=== PATIENT | female | born 1955 | race Caucasian/White ===

== ENCOUNTER 2016-12-01 13:30 | Day surgery (SDC) | payer OTHER, SELFPAY ==
--- NOTE | ~2016-12-01 | EGD ---
EGD REPORT [facility] [address] [place] [address] NAME: KARISHMA KAUFMAN : 59 STATUS : REG [facility] PAT#: [id number] AGE: 61 ADM/REG DATE : 12/01/16 MR#: [id number] REPORT SERV DATE: 12/01/16 DICTATED BY: ROSALVA SHELLEY DATE: 12/01/16 REPORT STATUS : Draft [facility]: [facility] DATE: 12/01/16 Endoscopy Center Patient Name: Karishma Kaufman Date of : 1955 Attending MD: ROSALVA SHELLEY MD Procedure Date No Time: 12/01/2016 Procedure: Upper GI endoscopy Indications: Dysphagia Referring MD: CRIS RAM III Medicines: See the Anesthesia note for documentation of the administered medications Complications: No immediate complications. Procedure: Pre-Anesthesia Assessment: - ASA Grade Assessment: III - A patient with severe systemic disease. After obtaining informed consent, the endoscope was passed under direct vision. Throughout the procedure, the patient's blood pressure, pulse, and oxygen saturations were monitored continuously. The GIF [id number] was introduced through the mouth, and advanced to the second part of duodenum. The upper GI endoscopy was accomplished without difficulty. The patient tolerated the procedure well. Findings: The examined duodenum was normal. Mild inflammation was found in the gastric antrum. Biopsies were taken with a cold forceps for histology. The cardia and gastric fundus were normal on retroflexion. Normal mucosa was found in the lower third of the esophagus. Biopsies were taken with a cold forceps for histology. A small hiatus hernia was present. A guidewire was placed and the scope was withdrawn. Dilation was performed with a Savary dilator with no resistance at 48 Fr. Impression: - Normal examined duodenum. - Gastritis. Biopsied. - Normal mucosa was found in the lower third of the esophagus. Biopsied. - Hiatus hernia. Dilated. Recommendation: - Patient has a contact number available for emergencies. The signs and symptoms of potential delayed complications were discussed with the patient. Return to normal activities tomorrow. Written discharge EGD REPORT [address] [address] NAME: KARISHMA KAUFMAN : [birth year] STATUS : REG [facility]#: [id number] AGE: 61 ADM/REG DATE : 12/01/16 MR#: [id number] REPORT SERV DATE: 12/01/16 DICTATED BY: ROSALVA SHELLEY DATE: 12/01/16 REPORT STATUS : Draft TRANSCRIBED BY: [employer] DATE: 12/01/16 instructions were provided to the patient. - Full liquid diet today. - Continue present medications. - FOR YOUR BIOPSY RESULTS: Please go to [email or web address] and register to receive your results via the portal. Your biopsy results will be posted there in about 7 to 10 days. IF you do not see result in 10 days, call office. - Full liquids today, soft diet tomorrow, regular diet the following day Procedure Code(s): --- Professional --- 40031, Esophagogastroduodenoscopy, flexible, transoral; with insertion of guide wire followed by passage of dilator(s) through esophagus over guide wire 32810, Esophagogastroduodenoscopy, flexible, transoral; with biopsy, single or multiple Diagnosis Code(s): --- Professional --- K29.70, Gastritis, unspecified, without bleeding K44.9, Diaphragmatic hernia without obstruction or gangrene R13.10, Dysphagia, unspecified CPT copyright 2013 [employer]. All rights reserved. The codes documented in this report are preliminary and upon physician coder review may be revised to meet current compliance requirements. Rosalva Shelley MD ROSALVA SHELLEY MD 12/01/2016 4:22 PM This report has been signed electronically. Number of Addenda: 0 Note Initiated On: 12/01/2016 4:07 PM [address] [place] [address]
[~2016-12-01 13:30] MED LIST: AMIT25 PO; ASA5GR PO; ASAB PO; CELEXA40 MG PO; CRESTOR10 PO; CRESTOR20 MG PO; DOES NOT KNOW MEDS; ENALAPRIL; GLUCPH PO; IMDUR30 PO; K-PHOS 500 MG500 MG PO; K-TABS10 MEQ PO; KLONO1 PO; KLOR-CON 1010 MEQ PO; L20 PO; LEVAQUIN5T PO; LOP25 PO; M-CLEAR WC PO; METFORMIN; METHOC750B PO; MICRO-K10 MEQ PO; MOBIC7.5 PO; NEUR100 PO; NEUR600 PO; NITROSTAT0.4 MG SL; NORCO1 TAB PO; P10 PO; PERCOCET1 TA2 PO; PERCOCET1 TA4 PO; PLAVIX PO; PRILOSEC40 MG PO; PROAIR HFA INH; SIMVASTATIN; TESSALON200 MG PO; TOPXL25 PO; VASERETIC5 PO; ZANTAC150 MG PO; ZOCOR20 PO; ZOCOR40 PO
[2017-05-14] MEDS ORDERED: L20 PO (01:54)
[2017-05-14] MEDS ORDERED: FORTAMET500 MG PO (01:54)
[2017-05-14] MEDS ORDERED: IMDUR30 PO (01:54)
[2017-05-14] MEDS ORDERED: TOPXL25 PO (01:55)
[2017-05-14] MEDS ORDERED: ASAB PO (01:55)
[2017-05-14] MEDS ORDERED: METHOC750B PO (01:56)
[2017-05-14] MEDS ORDERED: MICRO-K10 MEQ PO (01:56)
[2017-05-14] MEDS ORDERED: NEUR600 PO (01:57)
[2017-05-14] MEDS ORDERED: ENDOCET1 TA3 PO (01:57)
[2017-05-14] MEDS ORDERED: NITROSTAT0.4 MG SL (01:57)
[2017-05-17] MEDS ORDERED: LIPITOR80 MG PO (17:43)
[2017-05-17] MEDS ORDERED: PROTONIX PO (17:44)
== END 2016-12-01 23:59 | disposition home or self-care (01) ==
LOC: DMU 13:30
PROVIDERS: Internal Medicine Gastroenterology
PROC: 0D758ZZ Dilation of Esophagus, Via Natural or Artificial Opening Endoscopic (ICD-10-PCS; 2016-12-01)
PROC: 0DB68ZX Excision of Stomach, Via Natural or Artificial Opening Endoscopic, Diagnostic (ICD-10-PCS; principal; 2016-12-01 15:00)
PROC: 0DB38ZX Excision of Lower Esophagus, Via Natural or Artificial Opening Endoscopic, Diagnostic (ICD-10-PCS; 2016-12-01 15:00)
DX: K29.50 Unspecified chronic gastritis without bleeding (principal); K44.9 Diaphragmatic hernia without obstruction or gangrene; I10 Essential (primary) hypertension; G47.33 Obstructive sleep apnea (adult) (pediatric); E11.9 Type 2 diabetes mellitus without complications; E66.9 Obesity, unspecified; G43.909 Migraine, unspecified, not intractable, without status migrainosus; I20.9 Angina pectoris, unspecified; F32.9 Major depressive disorder, single episode, unspecified; E78.00 Pure hypercholesterolemia, unspecified; Z88.5 Allergy status to narcotic agent; Z88.8 Allergy status to other drugs, medicaments and biological substances; Z79.84 Long term (current) use of oral hypoglycemic drugs; Z79.899 Other long term (current) drug therapy; Z87.891 Personal history of nicotine dependence; M19.90 Unspecified osteoarthritis, unspecified site; Z90.49 Acquired absence of other specified parts of digestive tract; Z98.51 Tubal ligation status; Z98.890 Other specified postprocedural states
CPT/HCPCS: 82962; 88305